=== PATIENT | male | born 1945 | race Caucasian/White ===

== ENCOUNTER 2017-09-12 14:56 | Emergency (ER) | payer OTHER ==
[2017-09-12 15:06] VITALS: RESP 18
[2017-09-12] MEDS ORDERED: OXYMETAZOLINE 30 ML NASAL SPRAY ONE (16:09)
--- NOTE | 2017-09-12 16:09 | EDPHY ---
H & P Time Seen by Provider: 09/12/17 16:02 HPI/ROS: CHIEF COMPLAINT: Epistaxis HISTORY OF PRESENT ILLNESS: This patient is a 72 year old male arriving with his family complaining of epistaxis onset around 10:30am this morning following a walk. The patient is visiting from [place] and was walking outside this morning prior to the onset of symptoms. Initially, the bleeding was left-sided. He pinched his nose and put his head back, at which hpoint the epistaxis became bilateral. He has kleenex in both nares and the bleeding has resolved. History of sinus surgery in 11/2015 and a Mohs procedure 11/2016. About one month ago, he had a nosebleed which resolved itself. He has history of open heart surgery and takes 2 81mg ASA in the evenings but takes no other anticoagulants. He denies cold or recent illness. No fever, headache, chest pain, shortness of breath, abdominal pain, or other associated symptoms. No history of clotting disorders. REVIEW OF SYSTEMS: A 10 point review of systems was performed and is negative with the exception of the elements mentioned in the history of present illness. Past Medical/Surgical History: 1. Open heart surgery 2003 (ASA 81mg x2 in the evenings) 2. Sinus surgery (11/2015) 3. Melanoma (Mohs procedure 11/2016) 4. Rectal cancer (2015) 5. Hernia repair Social History: Son and at bedside. Visiting from [place]. . Nonsmoker. Smoking Status: Never smoked Physical Exam: General Appearance: Alert, pleasant Eyes: Pupils equal and round, no conjunctival pallor ENT, Mouth: Kleenex in both nares. Removed, blew his nose, no bleeding. Tear in mucosa noted at anterior superior aspect of the left naris Neck: Normal inspection Respiratory: Lungs are clear to auscultation Cardiovascular: Regular rate and rhythm Gastrointestinal: Abdomen is soft and non-tender Neurological: A&O, nonfocal, normal gait Skin: Warm and dry Extremities: normal inspection Psychiatric: Mood and affect normal Constitutional: Initial Vital Signs Temperature (C) 36.8 C 09/12/17 15:03 Heart Rate 81 09/12/17 15:03 Respiratory Rate 18 09/12/17 15:03 Blood Pressure 145/95 H 09/12/17 15:03 O2 Sat (%) 94 09/12/17 15:03 O2 Delivery Mode Room Air Allergies/Adverse Reactions: No Known Allergies Allergy (Unverified 09/12/17 15:01) Home Medications: Medication Instructions Recorded AMITRIPTYLINE HCL 09/12/17 ASPIRIN 09/12/17 Atorvastatin Calcium 09/12/17 Lisinopril 09/12/17 Metoprolol Succinate 09/12/17 Omeprazole 09/12/17 Ursodiol 09/12/17 Medical Decision Making ED Course/Re-evaluation: 72 y/o male presents with persistent epistaxis onset this morning. He has self- placed Kleenex packing in both nares. 16:18 Removed packing. Administered Afrin nasal spray. No bleeding. Exam reveals small tear in mucosa at anterior superior aspect of his left naris in the area of his prior Mohs procedure. Bleeding discontinued. Plan to d/c in good condition. Follow up and return precautions discussed. 17:00 Onset of left sided epistaxis after standing. Nasal clip placed. On my exam, no bleeding and minimal blood in nose. Possible tiny vessel on ant septum as source of bleeding. Cauterized using silver nitrate, placed short anterior packing. He will follow up in 2-3 days for pack removal either here in the emergency department or with the ENT specialist donor services team leader. He and his family are comfortable with this plan. - Data Points Medications Given: Discontinued Medications Oxymetazoline HCl (Afrin Nasal [place]) 2 sprays EACHNARE EDNOW ONE Stop: 09/12/17 17:14 Last Admin: 09/12/17 17:25 Dose: Not Given Silver Nitrate/Potassium Nitrate (Silver Nitrate Applicator) 1 each TP EDNOW ONE Stop: 09/12/17 17:14 Last Admin: 09/12/17 17:25 Dose: Not Given Departure - Departure Disposition: Home, Routine, Self-Care Clinical Impression: Epistaxis Condition: Good Instructions: Nosebleed (ED) Additional Instructions: 1. Follow up with your primary care provider upon your return home. 2. Your nasal packing will need to be removed in 2-3 days. You may return to the emergency department Friday, or follow up with an ENT specialist on Friday. We have referred you to our ENT specialist donor services team leader. 3. If bleeding recurs in the future, lean forward and place the nasal clip as directed for 15 minutes. You may also use Afrin as we discussed. 4. Return to the emergency department for uncontrollable bleeding, weakness or dizziness, persistent vomiting, or other worsening of condition. Referrals: OUT,OF STATE [Other] - As per Instructions Kayleigh Guillermo MD [Medical Doctor] - As per Instructions Report Scribed for: Hailey Souza Report Scribed by: Toyin Amor Date of Report: 09/12/17 Time of Report: 16:09 Physician Review and Approval Statement: 09/12/17 16:09 Portions of this note were transcribed by a medical assistant per diem. I personally performed a history, physical exam, medical decision making, and confirmed accuracy of information the transcribed note.
[2017-09-12] MEDS ORDERED: SILVER NITRATE APPLICATOR 1 APPL TP ONE ×2 (17:10→17:13)
[2017-09-12] MEDS ORDERED: OXYMETAZOLINE 30 ML NASAL SPRAY EACHNARE ONE (17:13)
[2017-09-12 17:40] VITALS: BP 146/104; PULSE 93; TEMP 97.9; O2SAT 91
== END 2017-09-12 17:40 | disposition home or self-care (01) ==
DX: R04.0 Epistaxis (principal); Z79.82 Long term (current) use of aspirin; Z85.048 Personal history of other malignant neoplasm of rectum, rectosigmoid junction, and anus; Z85.820 Personal history of malignant melanoma of skin

== ENCOUNTER 2017-09-14 10:19 | Emergency (ER) | payer OTHER ==
[2017-09-14 10:26] VITALS: BP 140/83; PULSE 75; RESP 18; TEMP 97.7; O2SAT 93
--- NOTE | 2017-09-14 10:46 | EDPHY ---
H & P Stated Complaint: nasal packing l nares told to come today for removal Time Seen by Provider: 09/14/17 10:38 HPI/ROS: Chief Complaint: Nasal packing removal HPI: The patient presents to the ED for nasal packing removal. He was seen here 2 days ago and had a packing placed in his left nares. He is only on aspirin. He denies anticoagulant use. He denies any recurrent epistaxis. REVIEW OF SYSTEMS: ENT: As above Source: Patient - Personal History Current Tetanus/Diphtheria Vaccine: Yes - Medical/Surgical History Hx Asthma: No Hx Chronic Respiratory Disease: No Hx Diabetes: No Hx Cardiac Disease: Yes Hx Renal Disease: No Hx Cirrhosis: No Hx Alcoholism: No Hx HIV/AIDS: No Hx Splenectomy or Spleen Trauma: No Other PMH: open heart sgy 2003, sinus sgy 2015, melanoma, rectal ca 2015, hernia repair, - Social History Smoking Status: Never smoked - Physical Exam Exam: General: No acute distress ENT: Packing and left naris, removed, no ongoing bleedin Constitutional: Initial Vital Signs Temperature (C) 36.5 C 09/14/17 10:22 Heart Rate 75 09/14/17 10:22 Respiratory Rate 18 09/14/17 10:22 Blood Pressure 140/83 H 09/14/17 10:22 O2 Sat (%) 93 09/14/17 10:22 O2 Delivery Mode Room Air Allergies/Adverse Reactions: No Known Allergies Allergy (Unverified 09/12/17 15:01) Home Medications: Medication Instructions Recorded AMITRIPTYLINE HCL 09/12/17 ASPIRIN 09/12/17 Atorvastatin Calcium 09/12/17 Lisinopril 09/12/17 Metoprolol Succinate 09/12/17 Omeprazole 09/12/17 Ursodiol 09/12/17 Medical Decision Making ED Course/Re-evaluation: The patient's nasal packing was removed. There is no recurrent bleeding. Departure - Departure Disposition: Home, Routine, Self-Care Clinical Impression: Encounter for removal of nasal packing Condition: Good Instructions: Nosebleed (ED) Additional Instructions: 1. Return to the ED for any recurrent bleeding or other concerns. Referrals: ALMITA QUINTERO [Other] - As per Instructions
== END 2017-09-14 10:51 | disposition home or self-care (01) ==
DX: Z48.00 Encounter for change or removal of nonsurgical wound dressing (principal); Z79.82 Long term (current) use of aspirin; Z85.048 Personal history of other malignant neoplasm of rectum, rectosigmoid junction, and anus